=== PATIENT | female | born 1955 | race Caucasian/White ===

== ENCOUNTER 2017-11-02 06:12 | Day surgery (SDC) | payer BC ==
[~2017-11-02] VITALS: Ht 170.2 cm; Wt 94.0 kg
[2017-11-02 06:59] VITALS: BP 123/62; PULSE 92; TEMP 98
[2017-11-02] MEDS ORDERED: NEURONTIN800 MG/TAB PO (07:06)
[2017-11-02] MEDS ORDERED: ACTOS 15MG TAB15 MG PO (07:07)
[2017-11-02] MEDS ORDERED: DEXILANT30 MG PO (07:08)
[2017-11-02] MEDS ORDERED: CELEBREX 200MG200 MG PO (07:09)
[2017-11-02] MEDS ORDERED: DESYREL 50MG50 MG PO (07:09)
[2017-11-02] MEDS ORDERED: ATIVAN 1MG T1 MG/TAB PO (07:10)
[2017-11-02] MEDS ORDERED: LIPITOR20 MG PO (07:11)
[2017-11-02] MEDS ORDERED: TIROSINT75 MC1 PO (07:12)
[2017-11-02] MEDS ORDERED: ATARAX 25MG25 MG/TAB PO (07:13)
[2017-11-02] MEDS ORDERED: PRINIVIL10 MG PO (07:13)
[2017-11-02] MEDS ORDERED: QUESTRAN4 GM/9 GM PO (07:14)
[2017-11-02] MEDS ORDERED: WELLBUTRIN 75MG75 MG PO (07:14)
[2017-11-02 08:05] VITALS: BP 129/76; PULSE 83; TEMP 97.5
[2017-11-02 08:15] VITALS: BP 120/69; PULSE 79
[2017-11-02 08:30] VITALS: BP 116/65; PULSE 85
== END 2017-11-02 08:45 | disposition home or self-care (01) ==
LOC: SDCO 06:12
DX: Z12.11 Encounter for screening for malignant neoplasm of colon (principal); K57.30 Diverticulosis of large intestine without perforation or abscess without bleeding; K64.1 Second degree hemorrhoids; K58.9 Irritable bowel syndrome, unspecified; E11.9 Type 2 diabetes mellitus without complications
CPT/HCPCS: J2250; J2405; J3010; J7030